=== PATIENT | female | born 1980 ===

== ENCOUNTER 2024-02-22 09:27 | Outpatient (REF) | payer OTHER, SELFPAY ==
--- NOTE | ~2024-02-22 | XR_ITS ---
CLINICAL HISTORY: M79.641 - Pain in right hand 3 views right hand Comparison: None Findings: No fractures or dislocations No significant arthritic change No erosions No radiopaque foreign body Impression: Normal right hand This document has been electronically signed by: Jeremy Rodgers MD on 02/25/2024 21:43:16
== END 2024-02-22 09:28 | disposition home or self-care (01) ==
LOC: HO.HOSX 09:27
DX: M79.641 Pain in right hand (principal)
CPT/HCPCS: 73130

== ENCOUNTER 2024-02-22 11:57 | Outpatient (AMB) | payer OTHER, SELFPAY ==
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
[2024-02-22 12:04] VITALS: BMI 29.3
== END 2024-02-22 12:29 | disposition home or self-care (01) ==
PROVIDERS: PCP Internal Medicine
DX: S63.614A Unspecified sprain of right ring finger, initial encounter (principal); Z04.3 Encounter for examination and observation following other accident
CPT/HCPCS: 99203